=== PATIENT | male | born 1965 | race American Indian/Alaskan Native ===

== ENCOUNTER → 2020-03-24 | Outpatient (CLI) | payer OTHER ==
[~2020-03-24] MED LIST: Flomax0.4 MG PO; HYDCHL12.5; Percocet 5-3251 EACH PO; RANI150; Zofran Odt4 MG SL
== END | disposition home or self-care (01) ==
LOC: LAB SHORT 14:45 → PLD 14:45
DX: L70.0 Acne vulgaris (principal)
CPT/HCPCS: 88304; 88305